=== PATIENT | male | born 1965 | race Caucasian/White ===

== ENCOUNTER 2023-08-14 00:58 | Observation (INO) | payer OTHER, BC, SELFPAY ==
[2023-08-14] VITALS (15 sets, daily range): BP systolic 117–184; BP diastolic 55–92; PULSE 58–98; RESP 12–18; TEMP 35.9–37.3; O2SAT 94–99; BMI 28.6; BMI 28.3
--- NOTE | 2023-08-14 | GALL_PTH ---
PATIENT: RUBIO VALIENTE LOC: MS3 U#:[id number] AGE/SX: 58/M ROOM: MD318 RE08/14/[address]: Dr. Jeb Bishop MD : [id number] BED: 1 DIS: 08/15/2023 SPEC #: [id number] RECD: 08/14/23 13:21 STATUS: JULIETH SWANCarmelo #: [id number] ANNITA: 08/14/23 00:[address]: Jeb Bishop DEPT: SURGICAL PATHOLOGY RECD BY: Arnulfo Kuhn Tissues: Gallbladder, NOS Procedures: Surgery Specimen Level III HEADER OPERATION: Laparoscopic cholecystectomy with IOC PRE-OP DIAGNOSIS: Acute cholecystitis TISSUE SUBMITTED: Gallbladder MICROSCOPIC DIAGNOSIS Gallbladder, cholecystectomy: Chronic cholecystitis, cholelithiasis and cholesterolosis. A pericystic lymph node with reactive changes. NICO:kelly 08/17/2023 MICROSCOPIC DESCRIPTION Slides are reviewed. GROSS DESCRIPTION Received is one container labeled with the patient's name and designated gallbladder. The specimen consists of a gallbladder measuring 8.0 cm in length and up to 3.5 cm in diameter. The external surface is pink-hawkins, smooth and glistening for the most part. Focally it is granular, hemorrhagic and contains cautery artifact. The gallbladder contains hawkins-light yellow, hemorrhagic mucoid bile and one ovoid greenish-yellow stone 1.5 cm in greatest dimension. The mucosa also shows several yellowish streaks consistent with cholesterolosis. Also present close to cystic duct is a hawkins-pink nodule, a possible lymph node, measuring 0.7 cm in greatest dimension. The gallbladder wall measures up to 0.3 cm in thickness. Tray Delivery Aide sections from the gallbladder and the cystic duct including the entire possible lymph node are submitted in one cassette. / SJ:kelly 08/14/2023 TC:2 CPT: 30707
--- NOTE | 2023-08-14 01:05 | CT_ITS ---
STUDY: CT ABDOMEN AND PELVIS WITH CONTRAST REASON FOR EXAM: Male, 58 years old patient with diffuse abdominal pain. RADIATION DOSAGE (If Supplied By Facility): CTDIvol = ( 17.19 ) mGy, DLP = ( 1004.19 ) mGycm TECHNIQUE: Transaxial images were obtained from the dome of the diaphragm to the symphysis pubis without oral contrast. 100 mL of Isovue-370 was administered. Sagittal and coronal images were reconstructed. Individualized dose optimization techniques were used for this CT. COMPARISON: None. FINDINGS: The visualized lung bases are unremarkable. The visualized portions of the heart are within normal limits. There is decreased attenuation of the liver consistent with steatosis. Appears to be some pericholecystic fluid versus gallbladder wall thickening. There appears to be acute inflammation adjacent to the gallbladder. No gallstones are visualized. Normal spleen. Normal pancreas. Normal bilateral adrenal glands. Normal right kidney. Normal left kidney. Normal visualized stomach. There is no obvious dilated bowel, ascites or pneumoperitoneum. Small bowel has a grossly normal appearance. Stool is visible primarily within the ascending colon and proximal transverse colon. There is mild thickening of the gonzales of the hepatic flexure of the colon which may be reactive to the acute gallbladder inflammation. The distal transverse colon and descending colon are nondistended with questionable thickening of the gonzales. The appendix is visualized and appears normal. Normal abdominal aorta. There is venous distention of the inferior vena cava (IVC). Normal retroperitoneum. Normal urinary bladder. Normal visualized prostate gland. Normal abdominal wall. Normal osseous structures. CT/Abdomen/Pelvis W IV Cont ONLY IMPRESSION: Pericholecystic fluid and/or gallbladder wall thickening suggests sequela of acute cholecystitis. There is also inflammation adjacent to the gallbladder. Electronically Signed: Marta Whaley MD at 2:06 EDT ,
--- NOTE | 2023-08-14 01:06 | ED.VIS.GI ---
HPI HPI - GI History of Present Illness Chief Complaint: Abd Pain Informant: patient and spouse/S.O. Abdominal Pain/Flank Pain Onset: Today Context: Gradual Onset (Initially colicky, but now constant and severe) Timing: Continuous Quality: Aching Location: Diffuse Current Severity: Severe Maximum Severity: Severe Nausea/Vomiting/Emesis GI Symptom: Positive for Nausea and Vomiting Episodes: 1 Diarrhea/Melena/Hematochezia GI Symptom: Negative for Diarrhea, Melena or Hematochezia Associated Symptoms Associated Symptoms: Negative for Dysuria, Frequency or Hematuria Narrative Narrative: Patient presenting with severe diffuse abdominal pain. He states he had a mild ache in the middle of his abdomen earlier, he had some ice cream tonight, and afterwards it seemed to get worse, felt like severe bloating and gas, so we had a bowel movement and tried to get gas out, bowel movement was normal, no relief of the discomfort which continued to get worse, vomited on the way here. No history of any abdominal surgeries. states this is reminiscent of the time he was diagnosed with some sort of colitis and admitted to the hospital but unknown why he had that, they did a colonoscopy and states it was unremarkable. This was remotely. No alcohol tonight. PFSH PFSH Medical History no medical history no medical history Home Medications aspirin 81 mg chewable tablet 81 mg PO DAILY@0800 ##120 03/20/15 [Rx Last Taken Unknown] atorvastatin 80 mg tablet 20 mg (1/4 x 80 mg) PO QHS #30 TABLETS 03/20/15 [Rx Last Taken Unknown] Allergy/AdvReac Type Severity Reaction Status Date / Time No Known Allergies Allergy Verified 11/29/21 13:01 Family History Other Diabetes Social History Smoking Status: Never smoker ROS ROS ED Constitutional Constitutional ED: Denies chills or fever(s) Eyes Eyes: Denies change in vision or diplopia ENT ENT ED: Denies rhinorrhea or sore throat Cardiovascular Cardiovascular: Denies chest pain or palpitations Respiratory/Chest Respiratory/Chest: Denies cough or dyspnea Gastrointestinal Gastrointestinal: Reports abdominal pain, nausea and vomiting; Denies diarrhea or melena Genitourinary Genitourinary ED: Denies dysuria or hematuria Musculoskeletal Musculoskeletal: Denies back pain or neck pain Integumentary Denies abscess or rash Neurologic Neurologic: Denies headache(s), paresthesias or weakness Psychiatric Psychiatric: Reports anxiety; Denies suicidal thoughts EXAM Physical Exam Const Vital Signs: 08/14/23 00:59 Temperature 96.7 F L Temperature Source Temporal Pulse Rate 71 Respiratory Rate 18 Blood Pressure 184/92 H Blood Pressure Mean 122 Pulse Ox 99 Oxygen Delivery Method Room Air Positive well nourished and well developed Constitutional Narrative: In acute painful distress writhing around in bed General Appearance ED: well developed HEENT Reports moist mucous membranes normocephalic and atraumatic Eyes PERRL and EOMs intact bilaterally Neck full ROM and supple Resp normal respiratory effort and clear to auscultation bilaterally Cardio regular rate, regular rhythm and no murmurs Rate: Negative for tachycardic GI non-distended GI Narrative: Epigastric tenderness without guarding or rebound. No [place] or [place] Noyola sign. No palpable pulsatile mass. Auscultation: normoactive bowel sounds Palpation: soft Back/Spine no CVA tenderness General Back: other FROM Extremity normal to inspection General Extremety ED: Negative for edema, pulses abnormal or tenderness General Extremity: Negative for edema or pulses abnormal Neuro oriented x3, CN's II-XII intact bilaterally and no sensory deficits noted Sensorium / Orientation: awake and alert Motor Exam: strength 5/5 throughout Psych Mood & Affect: anxious Skin no rashes or lesions noted and no wounds MDM MDM MDM Narrative Medical decision making narrative: Patient in quite severe pain. Given the history I added dicyclomine to the morphine and Zofran we gave him, on reevaluation he is feeling much better. I sent him to CT given the differential which is wide, including colitis, biliary colic, ruptured AAA, other causes of acute intestinal pain which are many. I reviewed the images of the CT, appears to show some stranding around the gallbladder along with a stone in the neck and dilated gallbladder. Radiology was in agreement, but by then I had already done a bedside ultrasound on him, he does have a positive sonographic Carson's in addition to what appears to be a radiopaque shadowing gallstone in the neck of the gallbladder, distension, and GB wall approx 0.36cm. His labs are normal showing no sign of elevated liver enzymes or elevated lipase at this time. My concern is that he has early acute cholecystitis, discussed with surgery plan is for admission. Antibiotics ordered. Lab Data Attestation: I reviewed the patient's lab results. Labs: Laboratory Results - last 24 hr 08/14/23 01:09 WBC 8.8 RBC 4.96 Hgb 15.2 Hct 44.9 MCV 90.5 MCH 30.6 MCHC 33.9 RDW Std Deviation 39.8 RDW Coeff of Iain 12.0 Plt Count 347 MPV 9.4 Immature Gran % (Auto) 0.500 Neut % (Auto) 61.8 Lymph % (Auto) 25.0 Gaines % (Auto) 9.3 Eos % (Auto) 2.6 Baso % (Auto) 0.8 Absolute Neuts (auto) 5.4 Absolute Lymphs (auto) 2.20 Nucleated RBC % 0 Sodium 140 Potassium 3.5 Chloride 106 Carbon Dioxide 27.0 Anion Gap 7 BUN 12 Creatinine 1.01 Estim Creat Clear Calc 89.00 Est GFR (MDRD) Af Amer 97 Est GFR (MDRD) Non-Af 80 BUN/Creatinine Ratio 11.9 Glucose 152 H Calcium 9.5 Total Bilirubin 0.30 AST 24 ALT 46 Alkaline Phosphatase 131 H Total Protein 7.1 Albumin 3.9 Globulin 3.2 Albumin/Globulin Ratio 1.2 Lipase 27 Radiography Diagnostic Testing: Clinical Impression(s) from Imaging Studies Abdomen/Pelvis CT 08/14/23 01:05 IMPRESSION: Pericholecystic fluid and/or gallbladder wall thickening suggests sequela of acute cholecystitis. There is also inflammation adjacent to the gallbladder. Electronically Signed: Marta Whaley MD at 2:06 EDT , My interpretation of the CT agrees with that of the radiologist. Management Discussion w/another healthcare provider: Director Chemistry (Surgery Dario) Discharge Plan Dx/Rx/DC Orders Clinical Impression: Acute calculous cholecystitis Disposition Disposition: Acute Care Hospital [facility]
[2023-08-14] MEDS: Morphine 4 MG/ML Syringe IV (01:11)
[2023-08-14] MEDS: Ondansetron 4 MG/2 ML Vial IV (01:11)
[2023-08-14 01:13] LABS: Absolute Neutrophil Count 5.4 X10^3/uL (2.0-7.7); Basophil# 0.07 X10^3/uL; Basophil% 0.8 % (0-1); Eosinophil# 0.23 X10^3/uL; Eosinophils% 2.6 % (0-5); Hematocrit 44.9 % (40-54); Hemoglobin 15.2 g/dL (13.0-16.5); Mean Corp Hgb Conc 33.9 g/dL (32-36); Mean Corpuscular Hgb 30.6 pg (27.0-32.0); Mean Corpuscular Volume 90.5 fL (80-94); Mean Platelet Vol. 9.4 fl (6.2-12.0); Monocyte# 0.82 X10^3/uL; Monocyte% 9.3 % (0-10); NRBC Flagged by Analyzer 0 % (0-5); Neutrophil # 5.43 X10^3/uL (2.7-7.7); Neutrophil % 61.8 % (47-70); Platelet Count 347 K/mm3 (150-450); RBC Distribution Width SD 39.8 fl (35.1-43.9); Red Blood Count 4.96 M/mm3 (4.6-6.2); White Blood Count 8.8 K/mm3 (4.4-11.0)
[2023-08-14] MEDS: Dicyclomine 20 MG/2 ML Vial IM (01:13)
[2023-08-14] MEDS: 0.9% Normal Saline (1000mL) 1,000 ML 1000 ML IV (01:13)
[2023-08-14 01:29] LABS: ALB/GLOB Ratio 1.2 RATIO (0.9-2.4); AST(SGOT) 24 U/L (15-37); Alanine Aminotransfer ALT/SGPT 46 U/L (16-61); Albumin, Serum 3.9 g/dL (3.2-5.0); Alkaline Phosphatase 131 U/L (45-117); Anion Gap 7 (5-15); BUN 12 mg/dL (7-18); BUN/Creat Ratio 11.9 RATIO (10-20); Calcium,Total 9.5 mg/dL (8.5-10.1); Chloride 106 mmol/L (98-107); Creatinine, Serum 1.01 mg/dL (0.70-1.30); EST Glomerular Filtration Rate 80 mL/min (>60); Est Glom Filt Rate - Afr Amer 97 mL/min (>60); Globulin 3.2 g/dL (2.2-4.2); Glucose 152 mg/dL (74-106); Lipase 27 U/L (13-75); Potassium 3.5 mmol/L (3.5-5.1); Protein, Total 7.1 g/dL (6.4-8.2); Sodium Level 140 mmol/L (136-145)
[2023-08-14] MEDS: Ketorolac 15 MG/ML Vial IV (02:49)
[2023-08-14] MEDS: 0.9% Normal Saline (1000mL) 1,000 ML 100 ML IV ×3 (03:59→22:53)
[2023-08-14] MEDS: Piperacil/Tazobactam 3.375 GM in 0.9% Normal Saline (50mL MB+) 50 ML IV ×3 (04:37→22:53)
--- NOTE | 2023-08-14 05:55 | EKG12_ITS ---
Test Reason : PRE OP Blood Pressure : / mmHG Vent. Rate : 069 BPM Atrial Rate : 069 BPM P-R Int : 154 ms QRS Dur : 086 ms QT Int : 384 ms P-R-T Axes : 061 057 024 degrees QTc Int : 411 ms Normal sinus rhythm Normal ECG When compared with ECG of 18-MAR-2015 20:09, No significant change was found Confirmed by JOHN WATSON, DOUGLAS ([id number]), story editor PIERRE CHU ([id number]) on 08/26/2023 6:42:53 AM Referred By: Confirmed By:DOUGLAS LOPEZ MD
[2023-08-14] MEDS: Morphine 2 MG/ML Syringe IV (06:45)
--- NOTE | 2023-08-14 08:25 | HP.PCM.SX_ITS ---
HPI - General General Date of Admission: 08/14/23 HPI Narrative RUBIO VALIENTE, is a 58 M who presents with abdominal pain. Patient states he did not eat much yesterday and then started having abdominal pain yesterday evening. He had some ice cream and this made his pain worse. The pain is in the epigastric region. He says he is having some nausea but he thinks that is due to the pain. He has no fevers or chills and denies any vomiting. [facility] Medical History no medical history Home Medications NK 08/14/23 [History Last Taken Unknown] Allergy/AdvReac Type Severity Reaction Status Date / Time No Known Allergies Allergy Verified 11/29/21 13:01 Family History Other Diabetes Social History Smoking Status: Never smoker ROS Constitutional Constitutional: Denies anorexia or fatigue Eyes Eyes: Denies blurry vision ENT HEENT: Denies abnormal hearing Respiratory/Chest Respiratory/Chest: Denies cough or dyspnea Gastrointestinal Gastrointestinal: Reports abdominal pain and nausea; Denies diarrhea, dysphagia or vomiting Genitourinary Genitourinary: Denies change in urinary stream Musculoskeletal Musculoskeletal: Denies abnormal gait Integumentary Integumentary: Denies jaundice Neurologic Neurologic: Denies abnormal gait Endocrine Endocrinology: Denies heat intolerance Hematologic/Lymphatic Hematologic/Lymphatic: Denies easy bleeding Vital Signs Vital Signs Vital Signs: 08/14/23 00:59 08/14/23 02:34 08/14/23 03:57 Temperature 96.7 F L 98.7 F Temperature Source Temporal Oral Pulse Rate 71 69 58 L Respiratory Rate 18 16 14 Blood Pressure 184/92 H 154/88 H 148/72 H Blood Pressure Mean 122 110 97 Blood Pressure Source Monitor Blood Pressure Position Semi-Fowlers Blood Pressure Location Right Arm Pulse Ox 99 99 99 Oxygen Delivery Method Room Air Room Air 08/14/23 08:08 Temperature 98.7 F Temperature Source Oral Pulse Rate 63 Respiratory Rate 17 Blood Pressure 125/83 H Blood Pressure Mean 97 Blood Pressure Source Monitor Blood Pressure Position Semi-Fowlers Blood Pressure Location Pulse Ox 98 Oxygen Delivery Method Room Air Weight Weight: 215 lb 1 oz Body Mass Index (BMI) 28.3 Physical Exam Const oriented x3 and no apparent distress Resp normal respiratory effort GI soft to palpation Palpation: tender epigastric Results Lab / Micro Data 08/14/23 01:09 08/14/23 01:09 Labs: Laboratory Results - last 24 hr 08/14/23 01:09: WBC 8.8, RBC 4.96, Hgb 15.2, Hct 44.9, MCV 90.5, MCH 30.6, MCHC 33.9, RDW Std Deviation 39.8, RDW Coeff of Iain 12.0, Plt Count 347, MPV 9.4, Immature Gran % (Auto) 0.500, Neut % (Auto) 61.8, Lymph % (Auto) 25.0, Chaves % (Auto) 9.3, Eos % (Auto) 2.6, Baso % (Auto) 0.8, Absolute Neuts (auto) 5.4, Absolute Lymphs (auto) 2.20, Nucleated RBC % 0, Sodium 140, Potassium 3.5, Chloride 106, Carbon Dioxide 27.0, Anion Gap 7, BUN 12, Creatinine 1.01, Estim Creat Clear Calc 89.00, Est GFR (MDRD) Af Amer 97, Est GFR (MDRD) Non-Af 80, BUN/Creatinine Ratio 11.9, Glucose 152 H, Calcium 9.5, Total Bilirubin 0.30, AST 24, ALT 46, Alkaline Phosphatase 131 H, Total Protein 7.1, Albumin 3.9, Globulin 3.2, Albumin/Globulin Ratio 1.2, Lipase 27 Radiology Impression Abdomen/Pelvis CT 08/14/23 01:05 IMPRESSION: Pericholecystic fluid and/or gallbladder wall thickening suggests sequela of acute cholecystitis. There is also inflammation adjacent to the gallbladder. Electronically Signed: Marta Wahley MD at 2:06 EDT , Assessment & Plan Assessment/Plan (1) Acute calculous cholecystitis: PLAN: The patient was having epigastric pain yesterday which worsened. He came to the emergency room had a CT scan which showed para cholecystic fluid and stranding around the gallbladder. The patient had a bedside ultrasound in the emergency room which showed gallstone in the neck of the gallbladder. Patient was admitted and started on antibiotics. I discussed laparoscopic cholecystectomy with him. I discussed the procedure in detail with the patient. I discussed the risks, benefits, and alternatives of the procedure. I discussed the risks including but not limited to bleeding, infection, injury to surrounding organs such as the liver, bile duct, bowels. I did discuss the possibility of having to convert to an open procedure as well as the possibility that if any injuries occurred this may necessitate further surgery at a tertiary care center. Jeb Bishop MD Pager: [facility] [address] [place] [address] [address] [place] [address] Office:
--- NOTE | 2023-08-14 08:57 | NURSING ---
off unit via bed for surgery. pts cell phone locked in [facility]
[2023-08-14] MEDS: Bupivacaine 0.25% 30 ML Vial (10:11)
--- NOTE | 2023-08-14 10:11 | RAD_ITS ---
INDICATION: PAIN EXAMINATION/TECHNIQUE: Continuous fluoroscopic images are presented for evaluation. Total Fluoroscopic Time: 16.3 seconds , continuous Fluoroscopic Images. COMPARISON: No relevant prior comparison study available FINDINGS: No filling defects are identified. There is no biliary ductal dilatation. There is free passage into the duodenum. RAD/Cholangiogram/ O R,Initial IMPRESSION: No evidence of common bile duct filling defects this examination. Electronically Signed: Robert Messer MD at 13:07 EDT ,
[2023-08-14] MEDS: Lactated Ringers 1,000 ML 15 ML IV (10:15)
--- NOTE | 2023-08-14 11:02 | PCM.OPRPT ---
Report of Operation Date of Procedure: 08/14/23 Pre-Operative Diagnosis: Acute cholecystitis Post-Operative Diagnosis: Acute cholecystitis Surgery/Procedure Performed:: Laparoscopic cholecystectomy with cholangiogram Type of Anesthesia: General/Regional Specimen's removed: Gallbladder Estimated Blood Loss (mL): 10 Description of Procedure: After obtaining informed consent patient was brought back to the operating room. General anesthesia was induced. The abdomen was prepped and draped in usual sterile fashion. A small midline incision was made superior to the umbilicus and deepened to the level of fascia. The fascia was elevated and incised. Next the peritoneum was elevated and incised in the same fashion. Finger sweep was performed and the Arteaga trocar was placed into the abdomen. The balloon was inflated. The abdomen was inflated to 15 mmHg. Next a camera was introduced into the abdomen and the abdomen was inspected. Next under direct visualization three 5-mm ports were placed one subxiphoid and 2 subcostal. Next the gallbladder was elevated and retracted toward the right shoulder. The gallbladder was very tense. It was drained and contained hydrops fluid. The peritoneum was stripped from the gallbladder. The infundibulum was located and retracted laterally. Next the triangle of Calot was dissected and the cystic duct and cystic artery were identified. Cholangiograms were performed. The Pearson clamp was used to clamp across the infundibulum and the catheter needle was inserted into the gallbladder. Under fluoroscopy contrast was instilled into the gallbladder and the common duct, cystic duct as well as proximal hepatic ducts were identified. There was good filling of the duodenum. There were no filling defects noted in the common bile duct. The clamp was removed as well as the needle and the infundibulum was grasped once more. Three hemolock clips were placed across the cystic duct. The cystic duct was then divided leaving 2 clips on the stump. The cystic artery was clipped and divided in the same fashion. The hook cautery was then used to take the gallbladder off of the gallbladder bed. Hemostasis was obtained. Gallbladder fossa was irrigated and no active bleeding or bile leakage was noted. Next the camera was introduced in the subxiphoid port. An Endopouch bag was placed through the umbilical port and the gallbladder was placed into it. The gallbladder was then removed through the umbilical incision. The camera was then reinserted through the umbilical port. The gallbladder fossa was inspected once more and noted to be hemostatic with no leaking bile. The abdomen was suctioned dry. The 5 mm ports were removed under direct visualization. The umbilical port was then removed and the air was removed from the abdomen. Next using an 0 Vicryl suture the umbilical fascia was closed in a [id number] fashion. The umbilical port site was irrigated local anesthetic was administered to all the incisions. All the incisions were closed with interrupted subcuticular 4-0 Monocryl sutures followed by Steri-Strips and dressings. The patient was awoken and taken to PACU in stable condition. Admit VTE Documentation VTE Mechan Device Prophylaxis: SCD's
--- NOTE | 2023-08-14 11:04 | DCINST_ITS ---
Discharge Instructions Procedure Gallbladder Diet Discharge Diet: Light diet - advance as tolerated Activity Discharge Activity: May Not Drive (for 2-3 days or while taking narcotic pain medications.) and - (Do not drive, work heavy equipment or sign legal documents for 24 hours.) May shower in (days): 1 Lifting Restrictions: 20 lbs for 2 weeks Additional Activity Instructions:: Pain medication may cause nausea. You should typically eat light foods as you take your pain medications. Pain medication may also cause constipation. If this is a problem for you, please discuss with your doctor. Dressing / Incision Call your doctor if your incision/area has: Continuous Slow Oozing, Sudden Increased Bleeding, Increased Pain/ Swelling, Increased Redness and Foul Smelling Discharge Call your doctor if you observe: Fever of 101 or Higher Suture Line Care: Avoid Pulling/Pushing and Avoid Pinching/Bending Remove Dressing in: 2 days Additional Dressing/Incision Instructions:: Leave operative bandaids on for 2 days. When you remove dressing, leave Steri-Strips on until your follow-up appointment, or until the Steri-Strips fall off on their own. Follow Up Care Please Follow Up With: Jeb Bishop MD When: Please call to schedule 2 week follow up appointment. [phone] Test Results: Test results from this visit will be discussed in further detail at your follow- up appointment, if applicable. Discharge Plan Admission Admit Date/Time: 08/14/23 02:22 Attending Provider: Jeb Bishop Primary Care Provider: IZABELA PAK Discharge Orders/Prescriptions Prescriptions: New acetaminophen 325 mg Tablet 650 mg PO Q4H PRN PRN (Reason: Pain 1-10 Or Fever) Qty: 0 0RF oxycodone 5 mg Tablet 5 - 10 mg PO Q4H PRN PRN (Reason: Pain Score 4-10/10) 5 Days Qty: 20 0RF Referrals / Follow Up: IZABELA PAK [Other] Care Physician,No Primary [Non-Staff] - Disposition Disposition (needs filled in before D/C Order can be placed): Home, Self Care
--- NOTE | 2023-08-14 12:18 | CASEMGMT ---
MY ESPITIA Assessment: Face to Face with pt for initial transition planning/care coordination assessment. RN OMKAR introduced self and role at [facility], pt voices understanding and consents to assessment. Pt is A&O x4 and answers all questions appropriately at this time. Pt lying in bed in no distress, appears drowsy. Care providers, pharmacy, and demographics verified/updated. Admitting Dx: acute cholecystitis PCP:Lu Specialists: Denies Preferred Pharmacy: [facility] Insurance: MMO, [place] Prescription Benefit: yes LNOK: Víctor Duron, Living Arrangements: Pt lives with and two dtrs in a single story home with 2 steps to enter. Pt reports he is I in ADL's and denies concerns at home. Transportation: Pt drives self and denies concerns with transportation. DME:Denies HHC/SNF: Denies hx of Pt states no concerns with going home at time of dc. Pt states no further concerns/needs. CM to follow. Advised pt to ask CM if any further question/concerns/needs arise, voices understanding. Pt Goal: Home Plan: Home
--- NOTE | 2023-08-14 16:33 | CASEMGMT ---
Social Work SW met with pt to discuss advance directives.? Pt confirms he has completed a living will and health care POA naming his Víctor Duron.? Pt notified that documents are not on file at [facility] and SW requested they be brought in for scanning into the EMR.? WEI Gibbons
[2023-08-15 04:45] VITALS: BP 121/67; PULSE 75; RESP 16; TEMP 36.6; O2SAT 95
[2023-08-15] MEDS: Piperacil/Tazobactam 3.375 GM in 0.9% Normal Saline (50mL MB+) 50 ML IV (04:49)
[2023-08-15] MEDS: Acetaminophen 325 MG Tablet 650 MG PO (04:52)
--- NOTE | 2023-08-15 08:52 | PCM.PN.SRG ---
Subjective Subjective Patient is tolerating diet. Pain controlled. Objective Data Objective Data Vital Signs: Vital Signs Temp Pulse Resp BP Pulse Ox O2 Del Method 97.9 F 75 16 121/67 H 95 Room Air 08/15/23 04:45 08/15/23 04:45 08/15/23 04:45 08/15/23 04:45 08/15/23 04:45 08/15/23 08:49 Oxygen Delivery Method Room Air Weight: 215 lb 1 oz Body Mass Index (BMI) 28.3 Intake & Output: Intake and Output for Last 24 Hours 08/13/23 08/14/23 08/15/23 23:59 23:59 23:59 Intake Total 3107.92 / 3107.92 50 / 50 Balance 3107.92 / 3107.92 50 / 50 Lab / Micro Data 08/14/23 01:09 08/14/23 01:09 Radiography Diagnostic Testing: Radiology Impression Abdomen/Pelvis CT 08/14/23 01:05 IMPRESSION: Pericholecystic fluid and/or gallbladder wall thickening suggests sequela of acute cholecystitis. There is also inflammation adjacent to the gallbladder. Electronically Signed: Marta Whaley MD at 2:06 EDT , Cholangiogram 08/14/23 10:11 IMPRESSION: No evidence of common bile duct filling defects this examination. Electronically Signed: Robert Messer MD at 13:07 EDT , Physical Exam Resp normal respiratory effort Cardio regular rate GI GI Narrative: Abdomen: Soft, nondistended, tender near incision's dressed clean dry and intact, no peritoneal signs Assessment & Plan Assessment/Plan (1) S/P laparoscopic cholecystectomy: PLAN: Plan Patient tolerating diet. Will DC home.
[2023-08-15 08:54] VITALS: BP 123/67; PULSE 68; RESP 18; TEMP 36.7; O2SAT 96
== END 2023-08-15 11:40 | disposition home or self-care (01) | DRG 419 ==
LOC: ED 01:55 → MS3 02:46
PROVIDERS: Admitting Provider Surgery; Emergency Provider Emergency Medicine; Visit Provider Surgery
PROC: (CPT 47610; principal; 2023-08-14 07:40)
DX: K80.12 Calculus of gallbladder with acute and chronic cholecystitis without obstruction (principal); Z79.82 Long term (current) use of aspirin
CPT/HCPCS: 47563; 00790; 74177; 74300; 76000; 80053; 83690; 85025; 88304; 93005; 96361; 96365; 96366; 96372; 96375; 96376; 99221; 99284; J7030; J7120; Q9967; A4216; G0378; J2405